=== PATIENT | male | born 1945 | race Caucasian/White ===

== ENCOUNTER 2021-11-08 05:09 | Day surgery (SDC) | payer MEDICARE ==
[2021-11-05 15:58] LABS: CLARITY,URINE CLEAR (Clear); COLOR,URINE YELLOW (Yellow); GLUCOSE, URINE >=1000 mg/dl (Neg); KETONES,URINE NEGATIVE (Neg); LEUKOCYTE ESTERASE ,URINE NEGATIVE (Neg); NITRITES, URINE NEGATIVE (Neg); OCCULT BLOOD,URINE NEGATIVE (Neg); PROTEIN,URINE NEGATIVE (Neg); UROBILINOGEN,URINE 0.2 E.U/dL (0.2-1.0)
[2021-11-05 15:58] LABS: BASOPHILS # (AUTO) 0.1 X10'3 (0-0.2); BASOPHILS % (AUTO) 1.1 % (0-1); EOSINOPHILS # (AUTO) 0.2 X10'3 (0-0.9); LYMPHOCYTES # (AUTO) 1.5 X10'3 (1.1-4.8); MEAN CORPUSCULAR HEMOGLOBIN 31.2 PG (27.0-31.0); MEAN CORPUSCULAR HGB CONC 33.9 g/dL (33.0-36.5); MEAN CORPUSCULAR VOLUME 91.9 FL (78-98); MONOCYTES # (AUTO) 0.7 X10'3 (0-0.9); MONOCYTES % (AUTO) 7.9 % (2-12); NEUTROPHILS # (AUTO) 6.5 X10'3 (1.8-7.7); PRE OP HEMATOCRIT 44.9 % (42.0-52.0); PRE OP HEMOGLOBIN 15.2 g/dL (14.0-17.9); PRE OP PLATELET COUNT 165 X10'3 (140-440); RED BLOOD COUNT 4.88 X10'6 (4.70-6.10); RED CELL DISTRIBUTION WIDTH 13.3 % (11.5-14.5)
[2021-11-05 16:09] LABS: UA COLLECTION TYPE CLN CATCH MIDSTREAM
[2021-11-05 16:10] LABS: BACTERIA,URINE FEW /HPF (Neg); RBC,URINE 0-2 /HPF (0-2); SQUAMOUS EPITHELIAL CELL,UR FEW /LPF (FEW); WBC,URINE 0-4 /HPF (0-4)
[2021-11-05 16:15] LABS: ALBUMIN 3.5 G/DL (3.4-5.0); ALKALINE PHOSPHATASE 113 IU/L (46-116); BLOOD UREA NITROGEN 18 MG/DL (7-18); BUN/CREATININE RATIO 14.2 (5.4-32.0); CALCIUM 8.9 MG/DL (8.5-10.1); CHLORIDE 103 MMOL/L (99-107); CREATININE 1.27 MG/DL (0.60-1.10); PRE OP ALT 24 U/L (30-65); PRE OP ANION GAP 8 (8-16); PRE OP AST 18 U/L (10-37); PRE OP BILIRUB, TOTAL 0.6 MG/DL (0.0-1.0); PRE OP POTASSIUM 4.6 MMOL/L (3.4-5.1); PRE OP SODIUM 143 MMOL/L (135-145); TOTAL CARBON DIOXIDE 31.8 MMOL/L (24-32); eGFR 55 ML/MIN
[2021-11-05 16:16] LABS: PRE OP GLUCOSE 292 MG/DL (70-104)
[2021-11-08] VITALS (9 sets, daily range): BP systolic 126–141; BP diastolic 60–75
[~2021-11-08] VITALS: Ht 175.3 cm; Wt 131.8 kg
[~2021-11-08 05:09] MED LIST: ASCO-283 PO; ATOR-2 PO; CARV25TA2 PO; CHOL100046 PO; HYDR25TA5 PO; INSU100I31 SQ; ISOS120T13 PO; LOSA100T57 PO; MULT-1217 PO; PANT-47 PO; ringers solution, lacted 1,000 ML IV SCH
[2021-11-08] MEDS ORDERED: ceFAZolin inj. 2,000 MG in dextrose 5%-water 100 ML IV ONE (05:30)
[2021-11-08] MEDS ORDERED: DOCUMENT DATE & TIME OF BETA-BLOCKER PO ONE (05:30)
[2021-11-08] MEDS ORDERED: famotidine 20mg tablet PO ONE (05:30)
[2021-11-08] MEDS ORDERED: bacitracin 15gm ointment TP ONE (06:41)
[2021-11-08] MEDS ORDERED: BUPIVAcaine 0.5% inj/PF 30 ML ONE (06:41)
[2021-11-08] MEDS ORDERED: SECU150P2 SQ (06:59)
[2021-11-08] MEDS ORDERED: fentaNYL/PF 50MCG/1 ML 2ML syringe ONE (07:11)
[2021-11-08] MEDS ORDERED: midazolam 1 mg/ML 2ml injection ONE (07:11)
[2021-11-08] MEDS ORDERED: propofol inj 20 ML IV ONE (07:11)
[2021-11-08] MEDS ORDERED: ondansetron/PF 4mg/2ml inj ONE (07:12)
[2021-11-08] MEDS ORDERED: LIDOcaine 2% (20mg/ml) 5ml vial ONE (07:12)
[2021-11-08] MEDS ORDERED: hydrALAZINE 20mg/ml inj. IV PRN (07:15)
[2021-11-08] MEDS ORDERED: ondansetron/PF 4mg/2ml inj IV PRN (07:15)
[2021-11-08] MEDS ORDERED: fentaNYL/PF 50MCG/1 ML 2ML syringe IV PRN ×2 (07:15)
[2021-11-08] MEDS ORDERED: labetalol 20mg/4ml (5mg/ml) syringe IV PRN (07:15)
[2021-11-08] MEDS ORDERED: morphine 4 MG/ML inj SYRINge IV PRN (07:15)
[2021-11-08] MEDS ORDERED: ringers solution, lacted 1,000 ML IV SCH (07:15)
[2021-11-08] MEDS ORDERED: morphine 2 MG/ML inj. syringe IV PRN (07:15)
[2021-11-08] MEDS ORDERED: desflurane 240ml liquid inh. IH ONE (07:17)
[2021-11-08] MEDS ORDERED: ePHEDrine 50MG/ML INJ. ONE (07:30)
[2021-11-08] MEDS ORDERED: BUPIVAcaine 0.5% inj/PF 30 ml vial IJ ONE (07:48)
--- NOTE | 2021-11-08 07:57 | NUR ---
Received from OR via [facility]EE, accompanied by Anesthesiologist DR BEAN and report given by Anesthesiolgist. PT PRESENT WITH 20G LEFT HAND, DRESSING ON LEFT FOOT MINGO GUZMAN. Addendum: 11/08/21 at 0813 by Starr Gregg RN, RN Amended: Links added.
--- NOTE | 2021-11-08 09:07 | NUR ---
ALL DISCHARGE CRITERIA HAS BEEN MET. VSS, PAIN AT A TOLERABLE LEVEL, VOIDING AND ABLE TO SAFELY AMBULATE AND TRANSFER SELF. IV TAKEN OUT WITHOUT ANY COMPLICATIONS. ALL DISCHARGE INSTRUCTIONS COVERED WITH PATIENT AND ALL QUESTIONS ANSWERED. PATIENT TAKEN OUT VIA WHEELCHAIR TO PERSONAL VEHICLE WHERE FAMILY/FRIEND DROVE PATIENT HOME. PT GIVEN BOOT TO WEAR. PT LEFT WITH FULL UPPER AND LOWER DENTURES ALONG WITH GLASSES. Addendum: 11/08/21 at 0920 by Starr Gregg RN, RN Amended: Links added.
== END 2021-11-08 09:07 | disposition home or self-care (01) ==
LOC: PAS 05:09
PROVIDERS: ATTEND Podiatrist Foot & Ankle Surgery
DX: M79.672 Pain in left foot (principal); G47.30 Sleep apnea, unspecified; K21.9 Gastro-esophageal reflux disease without esophagitis; E11.22 Type 2 diabetes mellitus with diabetic chronic kidney disease; I12.9 Hypertensive chronic kidney disease with stage 1 through stage 4 chronic kidney disease, or unspecified chronic kidney disease; N18.9 Chronic kidney disease, unspecified; E66.8 Other obesity; Z68.41 Body mass index [BMI] 40.0-44.9, adult; Z79.899 Other long term (current) drug therapy; Z98.890 Other specified postprocedural states; Z98.49 Cataract extraction status, unspecified eye; Z85.828 Personal history of other malignant neoplasm of skin; Z98.52 Vasectomy status; Z87.891 Personal history of nicotine dependence; Z79.82 Long term (current) use of aspirin
CPT/HCPCS: 28820; 36415; 80053; 81001; 82948; 85025; 93005; A6222; J0690; J2250; J2405; J2704; J3010; J3490; J7030; J7060; J7120; S0020; Z7506; Z7512; A4618; A6449; A7000

== ENCOUNTER 2021-11-08 20:43 | Emergency (ER) | payer MEDICARE ==
[~2021-11-08] VITALS: Ht 175.3 cm; Wt 131.8 kg
[~2021-11-08 20:43] MED LIST changes: +SECU150P2 SQ; -ringers solution, lacted 1,000 ML IV SCH
[2021-11-08 20:59] VITALS: BP 190/88
== END 2021-11-09 02:41 | disposition left against medical advice (07) ==
LOC: ER 20:43
DX: M79.675 Pain in left toe(s) (principal); Z53.21 Procedure and treatment not carried out due to patient leaving prior to being seen by health care provider